=== PATIENT | male | born 1995 | race Caucasian/White ===

== ENCOUNTER 2016-12-06 11:15 | Emergency (ER) | payer MEDICAID ==
[~2016-12-06] VITALS: Ht 172.7 cm; Wt 81.6 kg
--- NOTE | 2016-12-06 11:15 | NUR ---
Placed in room 03 . Placed on site monitor, blood pressure machine and pulse oximeter. To gown for exam. Side rails up. Report given to Ashutosh.
--- NOTE | 2016-12-06 11:15 | NUR ---
ER at bedside examining patient.
[2016-12-06 11:20] VITALS: BP 17/68; PULSE 80; RESP 15; TEMP 98.2; O2SAT 16
[2016-12-06] MEDS ORDERED: FOLIC ACID 1 MG, THIAMINE HCL 100 MG, MAGNESIUM SULFATE 1 GM, MVI 10 ML in NACL 0.9% 1,... IV ONE (11:30)
[2016-12-06] MEDS ORDERED: NACL 0.9% 1,000 ML IV ONE (11:30)
[2016-12-06 12:02] LABS: BASOPHILS % (AUTO) 0.4 % (0.0-2.0); EOSINOPHILS # (AUTO) 0.1 K/uL (0.0-0.4); EOSINOPHILS % (AUTO) 1.4 % (0.0-4.0); HEMATOCRIT 38.3 % (36-54); LYMPHOCYTES # (AUTO) 2.4 K/uL (1.0-5.5); LYMPHOCYTES % (AUTO) 52.1 % (20.5-51.5); MEAN CORPUSCULAR HEMOGLOBIN 33 pg (27-31); MEAN CORPUSCULAR HGB CONC 34 % (32-36); MEAN CORPUSCULAR VOLUME 97 fL (79.0-98.0); MONOCYTES # (AUTO) 0.3 K/uL (0.0-1.0); MONOCYTES % (AUTO) 6.6 % (1.7-9.3); NEUTROPHILS # (AUTO) 1.8 K/uL (1.8-7.7); NEUTROPHILS % (AUTO) 39.5 % (40.0-70.0); PLATELET COUNT (AUTO) 220 K/uL (130-430); RED BLOOD CELL COUNT(AUTO) 3.94 MIL/uL (4.2-6.2); RED CELL DISTRIBUTION WIDTH 12.8 % (9.0-15.0); WHITE BLOOD COUNT (AUTO) 4.6 K/uL (4.8-10.8)
[2016-12-06 12:11] LABS: CALCIUM 8.2 mg/dL (8.4-11.0); CREATININE 0.67 mg/dL (0.55-1.30); POTASSIUM 3.3 mmol/L (3.5-5.1)
[2016-12-06 12:15] LABS: ALBUMIN 3.7 g/dL (3.4-4.8); TOTAL BILIRUBIN 0.2 mg/dL (0.0-1.0); TOTAL PROTEIN, SERUM 6.8 g/dL (6.4-8.3)
[2016-12-06 12:16] LABS: PROTHROMBIN TIME 11.1 SECS (9.5-12.5)
--- NOTE | 2016-12-06 12:44 | NUR ---
# 16 FR Avelar catheter with use of sterile technique. Immediate return of 600 cc clear yellow urine noted. Bedside drainage bag placed below level of bladder. Urine sample collected and sent to lab. Pt tolerated procedure with agiatation. After insertion of catheter patient became mildly combative, requiring verbal descalation.
[2016-12-06 13:08] LABS: BILIRUBIN,URINE NEGATIVE (NEGATIVE); BLOOD, URINE NEGATIVE (NEGATIVE); CLARITY/URINE CLEAR (CLEAR); COLOR,URINE YELLOW (YELLOW); GLUCOSE,URINE NEGATIVE (NEGATIVE); KETONES,URINE NEGATIVE (NEGATIVE); LEUKOCYTE ESTERASE ,URINE NEGATIVE (NEGATIVE); NITRITE, URINE NEGATIVE (NEGATIVE); PROTEIN URINE NEGATIVE (NEGATIVE); UROBILINOGEN,URINE 0.2 (0.2-1.0)
[2016-12-06 13:20] VITALS: BP 117/70; PULSE 81; RESP 15; TEMP 98.2
[2016-12-06 13:25] LABS: CANNABINOID, URINE POSITIVE (NEG <=50); METHAMPHETAMINES SCREEN,URINE POSITIVE (NEG <=500); URINE AMPHETAMINE POSITIVE (NEG <=500)
[2016-12-06 13:26] LABS: BARBITURATE, URINE NEGATIVE (NEG <=200); BENZODIAZEPINE, URINE NEGATIVE (NEG <=150); COCAINE, URINE NEGATIVE (NEG <=150); OPIATE, URINE NEGATIVE (NEG <=100); PHENCYCLIDINE SCREEN,URINE NEGATIVE (NEG <=25); UR TRICYCLIC ANTIDEPRESSANTS NEGATIVE (NEG <=300); URINE METHADONE NEGATIVE (NEG <=200); URINE OXYCODONE SCREEN NEGATIVE (NEG <=100); URINE PROPOXYPHENE SCREEN NEGATIVE (NEG <=300)
[2016-12-06 13:37] VITALS: O2SAT 16
--- NOTE | 2016-12-06 15:20 | NUR ---
Patient's mother is at bedside. Patient is now irrate and cussing at his mother and staff. States that he wants to go. Dr. Cook to bedside who states that he will discharge patient. Patient refused to wait for discharge instructions. Left ER spouting obsenities.
== END 2016-12-06 15:25 | disposition left against medical advice (07) ==
LOC: SED 11:15
DX: F19.129 Other psychoactive substance abuse with intoxication, unspecified (principal); Z72.89 Other problems related to lifestyle; Z53.20 Procedure and treatment not carried out because of patient's decision for unspecified reasons
CPT/HCPCS: 36415; 51702; 71010; 80053; 80307; 81003; 85025; 85610; 85730; 96361; 96365; 96366; 99285; G0480; G0481; G0482; J3411; J3475; J3490; J7030